=== PATIENT | female | born 1995 | race Caucasian/White ===

== ENCOUNTER → 2020-08-06 | Outpatient (REF) | payer OTHER | LOC: M LAB REF 11:52 | PROVIDERS: ATTEND Nurse Practitioner Adult Health | DX: L81.8 Other specified disorders of pigmentation (principal) ==

== ENCOUNTER → 2020-10-21 | Outpatient (REF) | payer OTHER | LOC: M LAB REF 16:35 | PROVIDERS: ATTEND Nurse Practitioner Adult Health | DX: R20.0 Anesthesia of skin (principal); R53.83 Other fatigue ==

== ENCOUNTER → 2020-12-04 | Outpatient (REF) | payer OTHER ==
[2020-12-04 19:00] LABS: GC DNA AMPLIFICATION NEGATIVE (NEGATIVE)
== END ==
LOC: M SFHCWAGY 16:36
PROVIDERS: ATTEND Nurse Practitioner Women's Health
DX: Z11.3 Encounter for screening for infections with a predominantly sexual mode of transmission (principal)

== ENCOUNTER → 2021-07-17 | Outpatient (CLI) | payer OTHER | LOC: M LAB 13:31 | PROVIDERS: ATTEND Psychiatry & Neurology Neurology | DX: G45.9 Transient cerebral ischemic attack, unspecified (principal); R20.2 Paresthesia of skin ==

== ENCOUNTER → 2021-10-14 | Outpatient (REF) | payer OTHER | LOC: M LAB REF 11:42 | PROVIDERS: ATTEND Physician Assistant | DX: R50.9 Fever, unspecified (principal) ==

== ENCOUNTER → 2021-11-24 | Outpatient (REF) | payer OTHER ==
[2021-11-24 17:35] LABS: BASO # 0.1 10^3/uL (0.0-0.2); EOS # 0.1 10^3/uL (0.0-0.5); EOS % 1.6 % (0.0-3.0); HEMATOCRIT 40.4 % (36.0-47.0); HEMOGLOBIN 13.5 g/dl (12.0-15.5); LYMPH # 1.7 10^3/uL (1.5-5.0); LYMPH % 25.5 % (24.0-44.0); MEAN CORPUSCULAR HEMOGLOBIN 30.2 pg (27.0-33.0); MEAN CORPUSCULAR HGB CONC 33.4 g/dl (32.0-36.5); MEAN CORPUSCULAR VOLUME 90.4 fl (80.0-96.0); MONO # 0.4 10^3/uL (0.0-0.8); MONO % 6.2 % (2.0-8.0); NEUTROPHILS # 4.5 10^3/uL (1.5-8.5); NEUTROPHILS % 65.4 % (36.0-66.0); PLATELET COUNT, AUTOMATED 196 10^3/uL (150-450); RED BLOOD COUNT 4.47 10^6/uL (4.00-5.40); WHITE BLOOD COUNT 6.8 10^3/uL (4.0-10.0)
[2021-11-24 17:39] LABS: AMORPHOUS SEDIMENT SMALL (NEGATIVE); APPEARANCE, URINE HAZY (CLEAR); BACTERIA, URINE AUTO NEGATIVE (NEGATIVE); BILIRUBIN, URINE AUTO NEGATIVE (NEGATIVE); BLOOD, URINE BLOOD NEGATIVE (NEGATIVE); COLOR, URINE YELLOW (YELLOW); GLUCOSE, URINE (UA) AUTO NEGATIVE (NEGATIVE); KETONE, URINE AUTO 2+ mg/dL (NEGATIVE); LEUKOCYTE ESTERASE, URINE AUTO NEGATIVE (NEGATIVE); MUCUS, URINE SMALL (NEGATIVE); NITRITE, URINE AUTO NEGATIVE (NEGATIVE); PROTEIN, URINE AUTO NEGATIVE (NEGATIVE); RBC, URINE AUTO 0 /HPF (0-3); SPECIFIC GRAVITY URINE AUTO 1.015 (1.002-1.035); SQUAMOUS EPITHELIAL CELL UR AU 5 /HPF (0-6); UROBILINOGEN, URINE AUTO 0.2 mg/dL (0.0-2.0); WBC, URINE AUTO 1 /HPF (0-3)
[2021-11-24 18:21] LABS: C REACTIVE PROTEIN QUANTITATIV 0.46 MG/DL (0.00-0.30); ERYTHROCYTE SEDIMENTATION RATE 8 mm/hr (0-20); MAGNESIUM LEVEL 1.9 MG/DL (1.8-2.4); PHOSPHORUS LEVEL 3.1 MG/DL (2.5-4.9)
[2021-11-24 20:06] LABS: TOTAL 25(OH) VITAMIN D 13.6 NG/ML (30.0-100.0)
== END ==
LOC: M SFHCRHEU 10:10
PROVIDERS: ATTEND Internal Medicine
DX: R76.8 Other specified abnormal immunological findings in serum (principal); M79.10 Myalgia, unspecified site

== ENCOUNTER → 2021-11-24 | Outpatient (CLI) | payer OTHER | LOC: M RAD 11:51 | PROVIDERS: ATTEND Internal Medicine | DX: M25.569 Pain in unspecified knee (principal) ==

== ENCOUNTER → 2021-12-28 | Outpatient (CLI) | payer OTHER | LOC: M SLEEP HO 13:28 | PROVIDERS: ATTEND Internal Medicine | DX: R53.82 Chronic fatigue, unspecified (principal) ==

== ENCOUNTER 2024-06-28 16:58 | Emergency (ER) | payer BC, OTHER ==
[~2024-06-28] VITALS: Ht 157.5 cm; Wt 78.5 kg
[2024-06-28 17:01] VITALS: BP 115/63; TEMP 98.2; O2SAT 100
== END 2024-06-28 19:25 | disposition left against medical advice (07) ==
LOC: M ED 16:58
DX: Z53.21 Procedure and treatment not carried out due to patient leaving prior to being seen by health care provider (principal)

== ENCOUNTER → 2024-07-19 | Outpatient (CLI) | payer BC ==
[2024-07-19 16:21] LABS: HEMATOCRIT 36.4 % (36.0-47.0); HEMOGLOBIN 12.6 g/dl (12.0-15.5); MEAN CORPUSCULAR HEMOGLOBIN 31.2 pg (27.0-33.0); MEAN CORPUSCULAR HGB CONC 34.6 g/dl (32.0-36.5); MEAN CORPUSCULAR VOLUME 90.1 fl (80.0-96.0); PLATELET COUNT, AUTOMATED 196 10^3/uL (150-450); RED BLOOD COUNT 4.04 10^6/uL (4.00-5.40); WHITE BLOOD COUNT 12.2 10^3/uL (4.0-10.0)
[2024-07-19 17:16] LABS: HIV 1&2 SCREEN NEGATIVE (NEGATIVE)
[2024-07-19 17:24] LABS: HEPATITIS C VIRUS ABY INDEX 0.05 INDEX (<0.8)
== END ==
LOC: M PLALAB 14:08
PROVIDERS: ATTEND Nurse Practitioner Family
DX: Z34.01 Encounter for supervision of normal first pregnancy, first trimester (principal); Z11.3 Encounter for screening for infections with a predominantly sexual mode of transmission

== ENCOUNTER → 2024-08-16 | Outpatient (REF) | payer BC ==
[2024-08-16 11:51] LABS: Trichomonas vaginalis (AMP) NOT DETECTED (NEGATIVE)
[2024-08-16 12:14] LABS: GC DNA AMPLIFICATION NEGATIVE (NEGATIVE)
== END ==
LOC: M PLALAB 08:51
PROVIDERS: ATTEND Nurse Practitioner Family
DX: Z34.01 Encounter for supervision of normal first pregnancy, first trimester (principal)

== ENCOUNTER → 2024-09-12 | Outpatient (REF) | payer BC | LOC: M SFHCWAGY 17:39 | PROVIDERS: ATTEND Obstetrics & Gynecology | DX: Z34.92 Encounter for supervision of normal pregnancy, unspecified, second trimester (principal) ==

== ENCOUNTER 2024-12-01 11:01 | Outpatient (CLI) | payer BC ==
[~2024-12-01] VITALS: Ht 157.5 cm; Wt 93.3 kg
[2024-12-01 11:21] VITALS: BP 108/72
[2024-12-01] MEDS ORDERED: COQ150CH PO (11:21)
[2024-12-01] MEDS ORDERED: MAGN400C2 PO (11:21)
[2024-12-01] MEDS ORDERED: VITA100T16 PO (11:21)
[2024-12-01] MEDS ORDERED: PRENTAB9 PO (11:21)
== END 2024-12-01 12:30 | disposition home or self-care (01) ==
LOC: M LDO 11:01
PROVIDERS: ATTEND Obstetrics & Gynecology
DX: O36.8130 Decreased fetal movements, third trimester, not applicable or unspecified (principal); Z3A.30 30 weeks gestation of pregnancy; Z79.899 Other long term (current) drug therapy
CPT/HCPCS: 59025; G0463

== ENCOUNTER → 2024-12-26 | Outpatient (CLI) | payer BC ==
[~2024-12-26] MED LIST: COQ150CH PO; MAGN400C2 PO; PRENTAB9 PO; VITA100T16 PO
== END ==
LOC: M WHC 07:32
PROVIDERS: ATTEND Advanced Practice Midwife
DX: O26.849 Uterine size-date discrepancy, unspecified trimester (principal)

== ENCOUNTER → 2025-01-08 | Outpatient (CLI) | payer BC | LOC: M WHC 09:24 | PROVIDERS: ATTEND Nurse Practitioner Family | DX: O40.9XX0 Polyhydramnios, unspecified trimester, not applicable or unspecified (principal) ==

== ENCOUNTER → 2025-01-08 | Outpatient (REF) | payer BC | LOC: M SFHCWAGY 10:00 | PROVIDERS: ATTEND Nurse Practitioner Family | DX: Z34.03 Encounter for supervision of normal first pregnancy, third trimester (principal) ==